=== PATIENT | female | born 1990 | race Caucasian/White ===

== ENCOUNTER 2025-02-08 13:55 | Outpatient (CLI) | payer OTHER, SELFPAY ==
--- NOTE | ~2025-02-08 | XR_ITS ---
AP and oblique views of the SI joints CLINICAL HISTORY: back pain FINDINGS: SI joints and visualized hip joints are unremarkable. No degenerative, erosive, or scleroti c change. No fracture or dislocation. Soft tissues are unremarkable. IMPRESSION: Unremarkable exam. Reviewed, dictated and finalized at location . IMPRESSION: Unremarkable exam.
--- NOTE | ~2025-02-08 | XR_ITS ---
Lumbosacral Spine: AP and lateral views Clinical History: Pain Findings: The normal lordotic curve is maintained. The vertebral bodies and posterior elements are i ntact. The intervertebral disc spaces are preserved. There is mild to moderate facet arthropathy and lumbar spine. The sacroiliac joints are normally outlined. Impression: Mild to moderate facet arthropathy, especially the lower lumbar spine. Reviewed, dictated and finalized at location . Impression: Mild to moderate facet arthropathy, especially the lower lumbar spine.
--- NOTE | ~2025-02-08 | XR_ITS ---
Cervical Spine: AP, lateral, open-mouth views Clinical History: Pain Findings: There is mild reversal of normal cervical lordosis. The vertebral bodies and posterior gonzález ments appear intact. The intervertebral disc spaces are well maintained. Pre-vertebral soft tissues are unremarkable. Impression: Mild reversal of the normal cervical lordosis, otherwise unremarkable exam. Reviewed, dictated and finalized at location . Impression: Mild reversal of the normal cervical lordosis, otherwise unremarkable exam.
--- OUTSIDE RECORDS SUMMARY | 2025-02-08 14:22 | XMS_ITS | Clinical Summary ---
Author Organization [facility] Health Address [address] [facility] fernando [place] [address] Care Team Providers Care Rubber Flap Tuber Machine Operator Name Role Phone Unavailable Primary Care Provider Unavailabl e Social History Tobacco Use Types Packs/Day Years Used Date Smoking Tobacco: Never Assessed Comments Unknown Sex and Gender Information Value Date Recorded Sex Assigned at Not on file Legal Sex Unknown 01/19/2021 8:38 PM PDT Gender Identity Not on file Sexual Orientation Not on file Plan of Treatment Not on file
--- OUTSIDE RECORDS SUMMARY | 2025-02-08 14:22 | XMS_ITS | Clinical Summary ---
Author Organization [facility] [address] [facility] Address [address] [place] [id number] Care Team Providers Care Powder Shoveler Name Role Phone Unknown, Notinfile Primary Care Provider Unavail able Goran Ferrer MD Unavailable [phone] Allergies No known active allergies Medications albuterol 2.5 mg /3 mL (0.083 %) nebulizer solution 08/18/19 22 Active ipratropium (ATROVENT) 0.02 % nebulizer solution 08/23/19 22 Active adalimumab (Humira,CF, Pen) 40 mg/0.4 mL pen injector kit Inject 0.4 mL (40 mg total) under the skin every 7 days 6 kit 10/27/19 25 Active Hadlima Autoinjector 40 mg/0.4 mL auto-injector INJECT 40 MG SUBCUTANEOUSLY EVERY 7 DAYS 6 mL 1 11/20/19 25 Active meloxicam (MOBIC) 15 mg tablet Take 1 tablet (15 mg total) by mouth daily 30 tablet 1 12/22/19 25 026 Active Active Problems Problem Noted Date Diagnosed Date Neck pain 11/05/2024 Assessment & Plan (11/05/2024 3:54 PM CDT): She reports chronic neck pain and now with intermittent N/T down BUE. She has found that this problem seems to be progressing. Will obtain a Cspine film and provided ordered for BUE ncs/emg, she will be contacted with results and recommendations. Chronic bilateral low back pain without sciatica 11/05/2024 Assessment & Plan (11/05/2024 3:57 PM CDT): Chronic low back pain which does sound somewhat inflammatory, as discussed last visit will obtain xrays of her SI joints and Lspine. In the meantime, offered a trial of diclofenac 75 mg bid; reviewed potential AE of NSAIDs including but not limited to GI upset, PUD, and nephrotoxicity. Advised that she will need labs monitoring kidney function twice yearly. She was interested in trying the diclofenac, Rx sent and monitor response. Medication monitoring encounter 11/09/2021 Assessment & Plan (11/05/2024 9:12 AM CDT): Continue routine lab monitoring Hepatitis negative 08/2021 Quantiferon gold/T spot negative 08/2021 Assessment & Plan (03/17/2024 8:32 AM CDT): Continue routine lab monitoring Hepatitis negative 08/2021 Quantiferon gold/T spot negative 08/2021 Assessment & Plan (10/29/2023 1:44 PM CDT): Continue routine lab monitoring Hepatitis negative 08/2021 Quantiferon gold/T spot negative 08/2021 Assessment & Plan (11/30/2022 12:20 PM CDT): Continue routine lab monitoring Hepatitis negative 08/2021 Quantiferon gold/T spot negative 08/2021 Assessment & Plan (06/01/2022 12:04 PM CDT): Continue routine lab monitoring Hepatitis negative 08/2021 Quantiferon gold/T spot negative 08/2021 Assessment & Plan (02/16/2022 8:52 AM CDT): Continue routine lab monitoring Hepatitis negative 08/2021 Quantiferon gold/T spot negative 08/2021 Assessment & Plan (11/17/2021 8:50 AM CDT): Continue routine lab monitoring Hepatitis negative 08/2021 Quantiferon gold/T spot negative 08/2021 Seronegative rheumatoid arthritis 09/08/2021 Overview (04/09/2024): Labs 09/08/2021 AVISE: MAXINE by JOJO only 28.99, Ec4d 19, PLT 605, CRP 31, ESR 114 14.3.3 eta negative Hepatitis B/C negative Tspot negative Xrays 09/21/2021 Unremarkable Ultrasound 09/15/2021 US right hand/wrist: Moderates effusions/power doppler on examination. Marked synovial thickening in the wrist and 2nd PIP joint. Moderate synovial thickening in the 3rd PIP joint. Grade 1 effusion and grade 2 power doppler in the wrist, radial/scaphoid joint, 2nd and 5th MCP joints, and 2nd PIP joint. Grade 2 power doppler in the volar wrist and volar 2nd and 5th MCP joints. Grade 2 effusion in the ulnar styloid. US right hand/wrist (04/09/24): 1) Dorsal wrist: Grade 1 power doppler. 2) Radial scaphoid joint: Grade 1 power doppler. 3) 2nd MCP joint: Grade 1 power doppler. 4) 3rd PIP joint: Moderate synovial thickening. 5) In comparison to previous US of the right hand/wrist from 09/15/21, there is significant improvement in the inflammatory process with overall decreased joint effusions, power doppler, and synovial thickening. Assessment & Plan (11/05/2024 3:53 PM CDT): Overall RA appears stable with a cdai in remission and repeat hand US last March without significant active inflammation. She too reports that she feels Humira remains effective. Will continue Humira SQ weekly and monitor. Labs today as below. Plan for routine follow up in 6 months or sooner as needed. Assessment & Plan (03/18/2024 12:33 PM CDT): Back on Humira weekly x4 months with some improvement but notes ongoing discomfort affecting her low back/hips and hands. As the back pain is new and does sound somewhat inflammatory, will obtain xrays of her SI joints and Lspine. Also recommend obtaining a repeat hand US to look for evidence of active RA. We had [previously discussed that with drug holidays it is possible to develop anti-drug antibodies which can render Humira ineffective when resumed, given this will check for ADA's today. Additional labs today as below. She will be called with results and recommendations. Assessment & Plan (10/30/2023 12:47 PM CDT): Moderate cdai. She previously noted significant benefit with Humira weekly, but has now been off since sometime in August. Discussed that with drug holidays it is possible to develop anti-drug antibodies which can render Humira ineffective when resumed; in light of this we could instead consider trying Enbrel. However, she prefers to first try resuming Humira to see if she can regain her prior benefit as she is comfortable with Humira. In the event that she does not respond, then will likely pursue Enbrel. Will check benefits for Humira with her new plan, samples x2 given today. Labs today as below. Plan for follow up in 2 months or sooner as needed. Assessment & Plan (11/30/2022 2:29 PM CDT): Low cdai. She has noted significant benefit with Humira weekly, will continue. Labs today as below. Plan for follow up in 6 months or sooner as needed. Assessment & Plan (06/01/2022 2:02 PM CDT): Low cdai. She has noted significant benefit with Humira weekly, will continue. Labs today as below. Plan for follow up in 4-6 months or sooner as needed. Assessment & Plan (02/16/2022 4:15 PM CDT): High cdai. Given prior failure of methotrexate and that she is of childbearing age (avoid leflunomide), initiated treatment with Humira. She has noted significant benefit with Humira, unfortunately the benefit now seems to wean after 1.5 weeks and symptoms flare significantly until she gets her next injection. Due to this wearing off effect, will try to get Humira weekly. Provided Humira samples x3 today so that she can start weekly dosing now. If this is not successful, then could consider adding azathioprine. Labs today as below. Plan for follow up in 3 months or sooner as needed. Assessment & Plan (11/17/2021 4:08 PM CDT): High cdai. Given prior failure of methotrexate and that she is of childbearing age (avoid leflunomide), initiated treatment with Humira. She has had two doses without AE and, despite her high cdai, she does feel that it is helping. Will plan to continue Humira 40 mg SQ every 14 days and allow time for effect. Plan for follow up in 3 months or sooner as needed. Assessment & Plan (09/22/2021 4:46 PM HOME HEALTH CNA): 31yoF presents for evaluation due to concern for PsA vs RA. She has a longstanding history of joint pain/stiffness and is noted to have evidence of chronic disease on exam with L elbow flexion contracture and limited ext B wrists. Notes prior labs showing +RF. She has a personal h/o eczema (bx confirmed), no personal or FH of PsO or IBD. Our workup shows elevated inflammatory markers and ultrasound R hand/wrist with moderate inflammatory changes. At this time favor SNRA. Given prior failure of methotrexate and that she is of childbearing age (avoid leflunomide), discussed initiating treatment with a biologic such as Humira. Reviewed potential AE including PML. Pt agreeable, will check benefits. Plan for follow up in 2 months or sooner as needed. Assessment & Plan (09/08/2021 4:36 PM HOME HEALTH CNA): 31yoF presents for evaluation due to concern for PsA vs RA. She has a longstanding history of joint pain/stiffness and is noted to have evidence of chronic disease on exam with L elbow flexion contracture and limited ext B wrists. Notes prior labs showing +RF. She has a personal h/o eczema (bx confirmed), no personal or FH of PsO or IBD. Overall there is evidence to suggest inflammatory arthritis. To further evaluate at this time will check serologies and imaging as below. Given prior failure of methotrexate and that she is of childbearing age (avoid leflunomide), will likely consider the use of a biologic. Encounters Date Type Department Care Team Description 12/21/2024 Orders Only [facility] [address] [place] [phone] Kirti Jerez PA from Last 3 Months Social History Tobacco Use Types Packs/Day Years Used Date Smoking Tobacco: Never Assessed Comments Unknown Sex and Gender Information Value Date Recorded Sex Assigned at Not on file Legal Sex Female 1:33 PM HOME HEALTH CNA Gender Identity Not on file Sexual Orientation Not on file Obstetrics History Last Filed Vital Signs Vital Sign Reading Time Taken Comments Blood Pressure 126/66 11/05/2024 3:03 PM CDT Pulse 102 11/05/2024 3:03 PM CDT Temperature 36.4 C (97.5 F) 09/22/2021 3:02 PM HOME HEALTH CNA Respiratory Rate - - Oxygen Saturation 98% 11/05/2024 3:03 PM CDT Inhaled Oxygen Concentration - - Weight 61.7 kg (136 lb) 11/05/2024 3:03 PM CDT Height 157.5 cm (5' 2) 11/05/2024 3:03 PM CDT Body Mass Index 24.87 11/05/2024 3:03 PM CDT Plan of Treatment Health Maintenance Due Date Last Done Comments Cervical Cancer Screening 1989 Depression Screening 1989 DTaP/Tdap/Td Vaccine (1 - Tdap) 2000 Varicella Vaccines (1 of 2 - 13+ 2-dose series) 2002 Hepatitis B Screening 2007 Regular Well Visit/Exam 18-64 2007 Influenza Vaccine (Season Ended) 2025 Hepatitis C Screening Completed 09/08/2021 HPV Vaccines Aged Out No longer eligi ble based on patient's age to complete this topic Pneumococcal vaccine <65 Aged Out No longer eligible based on patient's age to complete this topic Procedures Procedure Name Priority Date/Time Associated Diagnosis Comments HEPATITIS C ANTIBODY Routine 09/08/2021 12:00 AM HOME HEALTH CNA Polyarthralgia Encounter for screening for other viral diseases Chronic fatigue from Last 3 Months or Most Recently Relevant to Health Maintenance Results * Hepatitis C antibody (09/08/2021 12:00 AM HOME HEALTH CNA) Hep C Ab NON-REACTI VE NON-REACT DOMENIC [facility] SIGNAL TO CUT-OFF 0.02 <1.00 [facility] Comment: HCV antibody was non-reactive. There is no laboratory evidence of HCV infection. In most cases, no further action is required. However, if recent HCV exposure is suspected, a test for HCV RNA (test code 71210) is suggested. For additional information please refer to http://education.Dydra.[facility]/faq/UTN79f9 (This link is being provided for informational/ educational purposes only.) Blood specimen (specimen) 09/08/2021 09/08/2021 2:45 PM HOME HEALTH CNA Kirti [facility] LAB MICROBIOLOGY - GENERA L ORDERABLES Final Result [facility] [id number] [address] [phone] from Last 3 Months or Most Recently Relevant to Health Maintenance Insurance [facility] [place] [address] Care Teams Powder Shoveler Relationship Specialty Start Date End Date Unknown, Notinfile PCP - General 08/10/21 Goran Ferrer MD [address] [place] [address] Consulting Physician Rheumatology 04/08/24
--- OUTSIDE RECORDS SUMMARY | 2025-02-08 14:22 | XMS_ITS | Encounter Summary ---
Author Organization [facility] Health Address [address] [place] [address] Care Team Providers Care Design Painter Name Role Phone Unavailable Primary Care Provider Unavailabl e Prior Encounters Date Type Department Care Team Description 08/31/2019 Converted 13x Documents [facility] [address]DA Herman [phone] <No scans attached> Plan of Treatment Not on file Visit Diagnoses Not on file
--- OUTSIDE RECORDS SUMMARY | 2025-02-08 14:22 | XMS_ITS | Referral Summary ---
Author Organization [facility] [address] [facility] Address [address] [place] [address] Care Team Providers Care Program Clinician Name Role Phone Unknown, Notinfile Primary Care Provider Unavail able Goran Ferrer MD Unavailable [phone] Encounters Date Type Department Care Team Description 12/21/2024 Orders Only [facility] [address] [place] [phone] Kirti Jerez PA from Last 3 Months Allergies No known active allergies Medications albuterol [...] needed. Assessment & Plan (09/22/2021 4:46 PM MANAGER MANAGED CARE): 31yoF presents for evaluation due to concern [...] needed. Assessment & Plan (09/08/2021 4:36 PM MANAGER MANAGED CARE): 31yoF presents for evaluation due to concern [...] likely consider the use of a biologic. Social History Tobacco Use Types Packs/Day Years Used Date Smoking Tobacco: Never Assessed Comments Unknown Sex and Gender Information Value Date Recorded Sex Assigned at Not on file Legal Sex Female 1:33 PM MANAGER MANAGED CARE Gender Identity Not on file Sexual Orientation Not on file Last Filed Vital Signs Vital Sign Reading Time Taken Comments Blood Pressure 126/66 11/05/2024 3:03 PM CDT Pulse 102 11/05/2024 3:03 PM CDT Temperature 36.4 C (97.5 F) 09/22/2021 3:02 PM MANAGER MANAGED CARE Respiratory Rate - - Oxygen Saturation 98% 11/05/2024 3:03 PM CDT Inhaled Oxygen Concentration - - Weight 61.7 kg (136 lb) 11/05/2024 3:03 PM CDT Height 157.5 cm (5' 2) 11/05/2024 3:03 PM CDT Body Mass Index 24.87 11/05/2024 3:03 PM CDT Plan of Treatment Not on file Procedures Procedure Name Priority Date/Time Associated Diagnosis Comments HEPATITIS C ANTIBODY Routine 09/08/2021 12:00 AM MANAGER MANAGED CARE Polyarthralgia Encounter for screening for other viral diseases Chronic fatigue from Last 3 Months or Most Recently Relevant to Health Maintenance Results * Hepatitis C antibody (09/08/2021 12:00 AM MANAGER MANAGED CARE) Hep C Ab NON-REACTI VE NON-REACT DOMENIC [facility] SIGNAL TO CUT-OFF 0.02 <1.00 [facility] Comment: HCV antibody was non-reactive. There is no laboratory evidence of HCV infection. In most cases, no further action is required. However, if recent HCV exposure is suspected, a test for HCV RNA (test code 38905) is suggested. For additional information please refer to http://education.LogFire.PrePayMe/faq/VFV11i4 (This link is being provided for informational/ educational purposes only.) Blood specimen (specimen) 09/08/2021 09/08/2021 2:45 PM MANAGER MANAGED CARE us Kirti CLARK LAB MICROBIOLOGY - GENERA L ORDERABLES Final Result [facility] [id number] [address] [phone] from Last 3 Months or Most Recently Relevant to Health Maintenance Insurance [place] [address] Care Teams Program Clinician Relationship Specialty Start Date End Date Unknown, Notinfile PCP - General 08/10/21 Goran Ferrer MD [address] [place] [address] Consulting Physician Rheumatology 04/08/24
--- NOTE | 2025-02-08 15:00 | NEURO_ITS ---
Impression:? # Complains of numbness of hands. Non-diabetic. ? # No Carpal Tunnel Syndrome ? # Bilateral Ulnar neuropathy across the elbows, right more than left ? # Normal needle/ EMG exam Nerve Conduction Studies ?Stim Site NR Peak (ms) P-T Amp (?V) Site1 Site2 Delta-P (ms) Dist (cm) Dennis (m/s) Left Median Anti Sensory (2-3nd Digit) Wrist ? 2.4 104.4 Wrist 2-3nd Digit 2.4 14.0 58 Wrist ? 2.5 90.8 Wrist 2-3nd Digit 2.4 14.0 58 Right Median Anti Sensory (2-3nd Digit) Wrist ? 2.5 95.4 Wrist 2-3nd Digit 2.5 14.0 56 Wrist ? 2.4 56.7 Wrist 2-3nd Digit 2.5 14.0 56 Left Radial Anti Sensory (Base 1st Digit) Wrist ? 1.6 22.5 Wrist Base 1st Digit 1.6 0.0 Right Radial Anti Sensory (Base 1st Digit) Wrist ? 1.7 28.2 Wrist Base 1st Digit 1.7 0.0 Left Ulnar Anti Sensory (5th Digit) Wrist ? 2.4 93.6 Wrist 5th Digit 2.4 14.0 58 Right Ulnar Anti Sensory (5th Digit) Wrist ? 2.3 92.2 Wrist 5th Digit 2.3 14.0 61 ?Stim Site NR Onset (ms) O-P Amp (mV) Site1 Site2 Delta-0 (ms) Dist (cm) Dennis (m/s) Left Median Motor (Abd Poll Brev) Wrist ? 2.4 4.9 Elbow Wrist 4.2 27.0 64 Elbow ? 6.6 3.3 Right Median Motor (Abd Poll Brev) Wrist ? 2.3 7.9 Elbow Wrist 4.7 29.0 62 Elbow ? 7.0 7.0 Left Ulnar Motor (Abd Dig Minimi) Wrist ? 2.7 8.9 A Elbow Wrist 5.0 29.0 58 A Elbow ? 7.7 8.1 B Elbow Wrist 3.3 21.0 64 B Elbow ? 6.0 7.7 Right Ulnar Motor (Abd Dig Minimi) Wrist ? 1.7 11.7 A Elbow Wrist 5.3 29.0 55 A Elbow ? 7.0 11.4 B Elbow Wrist 3.2 19.0 59 B Elbow ? 4.9 11.3 Electromyography ?Side Muscle Nerve Root Ins Act Fibs Amp Dur Recrt Comment Right 1stDorInt Ulnar C8-T1 Nml Nml Nml Nml Nml Right Ext Indicis Radial (Post Int) C7-8 Nml Nml Nml Nml Nml Right Ext Digitorum Radial (Post Int) C7-8 Nml Nml Nml Nml Nml Right BrachioRad Radial C5-6 Nml Nml Nml Nml Nml Right PronatorTeres Median C6-7 Nml Nml Nml Nml Nml Right Abd Poll Brev Median C8-T1 Nml Nml Nml Nml Nml Right ABD Dig Min Ulnar C8-T1 Nml Nml Nml Nml Nml Right FlexPolLong Median (Ant Int) C7-8 Nml Nml Nml Nml Nml Right Abd Poll Long Radial (Post Int) C7-8 Nml Nml Nml Nml Nml Left 1stDorInt Ulnar C8-T1 Nml Nml Nml Nml Nml Left Ext Indicis Radial (Post Int) C7-8 Nml Nml Nml Nml Nml Left Ext Digitorum Radial (Post Int) C7-8 Nml Nml Nml Nml Nml Left BrachioRad Radial C5-6 Nml Nml Nml Nml Nml Left PronatorTeres Median C6-7 Nml Nml Nml Nml Nml Left Abd Poll Brev Median C8-T1 Nml Nml Nml Nml Nml Left ABD Dig Min Ulnar C8-T1 Nml Nml Nml Nml Nml Left FlexPolLong Median (Ant Int) C7-8 Nml Nml Nml Nml Nml Left Abd Poll Long Radial (Post Int) C7-8 Nml Nml Nml Nml Nml
== END 2025-02-08 13:56 | disposition home or self-care (01) ==
LOC: ANHNEURO 14:05
PROVIDERS: Visit Provider Physician Assistant
DX: G56.23 Lesion of ulnar nerve, bilateral upper limbs (principal); M40.56 Lordosis, unspecified, lumbar region; M47.816 Spondylosis without myelopathy or radiculopathy, lumbar region; M40.202 Unspecified kyphosis, cervical region
CPT/HCPCS: 72040; 72100; 72202; 95886; 95911